=== PATIENT | female | born 1975 ===

== ENCOUNTER 2016-03-30 23:51 | Emergency (ER) | payer MEDICAID ==
[~2016-03-30] VITALS: Ht 166.4 cm; Wt 136.4 kg
[~2016-03-30 23:51] MED LIST: CLON0.2T11 PO; ONDA4TAB9 PO
[2016-03-31 00:03] VITALS: BP 136/89; PULSE 91; RESP 16; O2SAT 99
[2016-03-31 01:39] VITALS: BP 134/79; PULSE 85; RESP 16; O2SAT 99
--- NOTE | 2016-03-31 02:27 | ED.REPORT ---
HPI-Extremity Problem Lower Date of Service Mar 31, 2016 ED Provider: Malcolm Rene DO Patient is a 40 year old female who presents to the ED with increased swelling and pain of her right knee, after sustaining any injury to her knee in January of last year. Patient was awaiting an MRI of her knee to evaluate the injury further, but she was unable to wait any longer. Patient denies a fever, chest pain, or shortness of breath. Nursing Notes Stated Complaint: RIGHT KNEE INJURY Chief Complaint: Extremity Trauma Nursing Notes Reviewed: Yes Allergies: Coded Allergies: ciprofloxacin (Verified Allergy, Severe, vomiting , hives, 03/31/16) codeine (Verified Adverse Reaction, Intermediate, NAUSEA, 03/31/16) ibuprofen (Verified Adverse Reaction, Unknown, vomitting, 03/31/16) Scheduled Clonidine (Catapres) 0.2 Mg Tablet 0.2 MG PO TID Scheduled PRN Ondansetron ODT (Zofran ODT) 4 Mg Tablet 4 MG PO Q4H PRN PRN For Nausea General Time Seen by MD: 02:26 Chief Complaint Knee injury right Hx Obtained From: Patient Arrived By: Walk-in Onset Occurred: More than a week ago... (increasing since January) Symptom Duration: Since onset Location: : Knee right Quality: Painful Severity: Current: Moderate Severity: Maximum: Severe Recent Healthcare: No recent hospitalization, Recent doctor visit Similar Sx Previous: Yes Past Medical History Past Medical History Morbid obesity Reports: Asthma, Hypertension Past Surgical History Reports: Cholecystectomy Smoking History Current Every Day Smoker Social History Drug Use: IV drugs Other Social History: Good social support, Local resident Ambulatory Status Independent Review of Systems Constitutional: Denies: Chills, Fever Musculoskeletal: Reports: Extremity pain, Extremity swelling Complete sys rev & neg: except as marked. Respiratory: Denies: Shortness of breath Cardiovascular: Denies: Chest pain Physical Exam Initial Vital Signs Vital Signs (First) Date Time Temp Pulse Resp B/P Pulse Ox O2 Delivery O2 Flow Rate FiO2 03/31/16 00:03 37.3 91 16 136/89 99 Room Air Initial VS: Reviewed Head / Eyes: Atraumatic, Normocephalic, PERRL ENT: Conjunctiva normal, No scleral icterus Neck: Supple, Full range of motion Respiratory: Breath sounds normal, Clear to auscultation, No respiratory distress Cardiovascular: Regular rate & rhythm, Heart sounds normal, Intact distal pulses Upper Extremities: Vascular intact, Neuro intact, No swelling Skin: Warm, Dry, No cyanosis Neurologic: Alert, Oriented, Nonfocal Psychiatric: Mood/affect normal, Behavior normal, Normal thought content Right Knee: Positive: Swelling present... (mid patellar swelling), Tenderness present... Right Leg / Calf: Positive: Tenderness present... (to compression) Interpretation & Diagnostics Interpretation & Diagnostics: Preliminary US report: Negative for DVT. X-Ray Interpretation Xray Interpretation: Impression: Arthritic changes. No acute process. X-Ray Ordered: Knee right Interpretation / Wet Read by: Wet read Resident Re-Eval/Medical Decision Med Decision/Clinical Course She does have a small effusion hour nothing that we can tap. She has some calf tenderness with some varicosities. DVT was ruled out. Fractures ruled out. She does have some degenerative changes. I still think she sprained her knee or tore something when she twisted and fell on it. We will place her in a knee immobilizer. Short course of opiates for pain. Orthopedic follow-up. Source of Hx: Old records Re-Evaluation/Progress : Time of Eval: 03:20 Patient Status: Condition improved Re-Evaluation/Progress Note: Informed the patient that her ultrasound and knee x-ray were negative. She should follow-up with orthopedic surgery. Patient understands and agrees with the plan to be discharged home. Discharge instructions and follow-up discussed. All questions were addressed. Return to the ED warnings given. Counseled Regarding: Diagnosis, Lab results, Need for follow-up, When/why to return to ED Discharge & Departure Impression: Primary Impression: Right knee pain Chronicity: acute Qualified Code: M25.561 - Pain in right knee Additional Impression: Post-traumatic arthritis of right lower leg Disposition: Home Discharge Condition All VS Reviewed: Yes Condition: Stable Patient Instructions: Knee Sprain (ED) Additional Instructions: Your x-ray and ultrasound of your knee were normal. You likely have post- traumatic arthritis. Take 1-2 Percocet every 4-6 hours as needed for pain. Do not drink alcohol, drive, or take acetaminophen while on this medication. Call the on-call orthopedic surgeon for a follow-up appointment. Also follow-up with your doctor in the next week. Return to the Emergency department if you develop any new or concerning symptoms. Referrals: David Stern MD Attestation Portions of this note were transcribed by Dorcas Anna. I, Dr. Rene personally performed the history, physical exam and medical decision-making; I reviewed and confirmed the accuracy of the information in the transcribed note. Signed by: Raj Brooks, 03/31/2016 0321 copies to: David Stern MD, Todd P DO Mar 31, 2016 02:27 Dorcas Anna Mar 31, 2016 02:50
[2016-03-31] MEDS ORDERED: oxyCODONE-Acetamin 5-325 mg Tablet PO ONE (02:35)
[2016-03-31] MEDS ORDERED: _oxyCODONE/APAP 5-325 mg Tablet PO PRN (02:35)
[2016-03-31 03:49] VITALS: BP 120/75; PULSE 87; RESP 18; O2SAT 98
--- NOTE | 2016-03-31 08:35 | DRSVH ---
PROCEDURE: US VEINOUS LEG DUPLEX UNILATERAL, RIGHT INDICATIONS: right leg pain and calf swelling, TECHNIQUE: Real-time imaging, as well as color and pulse Doppler interrogation, were performed of the lower extr emity deep veins from the inguinal ligament to the popliteal fossa. COMPARISON: None. FINDINGS: The deep veins are normally compressible, and free of intraluminal thrombus. Color and pu lse Doppler demonstrate normal phasic intraluminal flow. There is normal augmentation response to di stal compression maneuver. IMPRESSION: No deep vein thrombosis of the right lower extremity. Dictated by: Ester Smith M.D. on 03/31/2016 at 8:34 Approved by: Ester Smith M.D. on 03/31/2016 at 8:34
--- NOTE | 2016-03-31 08:35 | DRSVH ---
PROCEDURE: X-RAY RIGHT KNEE, THREE VIEWS ([id number]) INDICATIONS: fall, knee pain TECHNIQUE: 3 views of the knee were acquired. COMPARISON: [facility], CR, XR KNEE 3VW RT, 01/22/2016, 21:31. FINDINGS: Bones: No fractures or dislocations. There is moderate medial compartment joint space narrowing and tricompartmental osteophytosis. Soft tissues: No joint effusion. No suspicious soft tissue calcifications. IMPRESSION: Degenerative change. No acute radiographic findings. If pain persists, followup imaging i n 5-7 days is recommended to exclude occult fracture. Dictated by: Ester Smith M.D. on 03/31/2016 at 8:33 Approved by: Ester Smith M.D. on 03/31/2016 at 8:33
== END 2016-03-31 03:28 | disposition home or self-care (01) ==
LOC: SED 23:51
DX: M25.561 Pain in right knee (principal); M17.31 Unilateral post-traumatic osteoarthritis, right knee; I10 Essential (primary) hypertension; J45.909 Unspecified asthma, uncomplicated; F17.200 Nicotine dependence, unspecified, uncomplicated; Z88.1 Allergy status to other antibiotic agents; Z88.5 Allergy status to narcotic agent; Z88.6 Allergy status to analgesic agent

== ENCOUNTER 2016-08-30 08:59 | Emergency (ER) | payer MEDICAID, OTHER ==
[~2016-08-30] VITALS: Ht 167.6 cm; Wt 159.1 kg
[2016-08-30 09:11] VITALS: BP 124/68; PULSE 93; RESP 16; O2SAT 99
--- NOTE | 2016-08-30 09:20 | ED.REPORT ---
HPI-Overdose/Alcohol Toxicity Date of Service Aug 30, 2016 ED Provider: Uli Bhagat MD 40 y/o female with a hx of HTN and chronic right knee pain presents to the ED via EMS due to a fall after alcohol intoxication just prior to arrival. As per the EMS, the pt complained of right knee pain after she fell into a ditch. The pt had been drinking with her at the time who was unable to help the her out of the ditch. In the ED, the pt denies knee pain. Initially, she states "they say I was in an accident" when asked why she is here but when reminded, she agrees she fell into the ditch. The pt was reportedly sober for 2 months but relapsed yesterday. She can't recall how much she drank. She has experienced withdrawal symptoms before. Nursing Notes Stated Complaint: RIGHT KNEE PAIN Chief Complaint: Substance Abuse Nursing Notes Reviewed: Yes Allergies: Coded Allergies: ciprofloxacin (Verified Allergy, Severe, vomiting , hives, 03/31/16) codeine (Verified Adverse Reaction, Intermediate, NAUSEA, 03/31/16) ibuprofen (Verified Adverse Reaction, Unknown, vomitting, 03/31/16) Scheduled Clonidine (Catapres) 0.2 Mg Tablet 0.2 MG PO TID Scheduled PRN Ondansetron ODT (Zofran ODT) 4 Mg Tablet 4 MG PO Q4H PRN PRN For Nausea General Time Seen by Provider: 09:40 Chief Complaint Intoxicated, alcohol Hx Obtained From: Patient, EMS Arrived By: Ambulance Onset Occurred: Just prior to arrival Symptom Duration: Since onset Severity: Current: No pain currently Severity: Maximum: No pain Recent Healthcare: No recent doctor visit Similar Sx Previous: No Past Medical History Past Medical History Morbid obesity Reports: Asthma, Hypertension Past Surgical History Reports: Cholecystectomy Smoking History Current Every Day Smoker Social History Drug Use: IV drugs Other Social History: Good social support, Local resident Ambulatory Status Independent Review of Systems Unable to Obtain ROS Intoxicated Musculoskeletal: Reports: Joint pain (right knee as per EMS) Complete sys rev & neg: except as marked. Physical Exam Initial Vital Signs Vital Signs (First) Date Time Temp Pulse Resp B/P Pulse Ox O2 Delivery O2 Flow Rate FiO2 08/30/16 09:11 36.5 93 16 124/68 99 Room Air Initial VS: Reviewed Head / Eyes: Atraumatic, Normocephalic Neck: Supple, Non-tender, Full range of motion Extremities: Vascular intact, Neuro intact, No tenderness Skin: Warm, Dry, No cyanosis General/Constitutional: Alert, Cooperative Alertness: Positive: Sleeping but arousable Appearance / Presentation: Positive: Intoxicated Respiratory / Chest: Atraumatic, Breath sounds NL, Breath sounds = bilat, No respiratory distress, No rales, No rhonchi, No wheezing Cardiovascular: Heart rate NL, Regular rhythm, Heart sounds NL, No gallop, No murmurs, No rubs Abdomen: Atraumatic, Soft, Non-tender, No guarding, No rebound Neurologic: Speech NL, No motor deficits, No sensory deficits Psychiatric: Affect NL, Mood NL Lower Extremity / Pelvis / MS: Atraumatic, No deformity, Neurologic intact, Vascular intact Chronic right knee pain Re-Eval/Medical Decision Med Decision/Clinical Course 40-year-old female long history of alcohol abuse presenting after being found in the ditch intoxicated today. Reports drinking a lot of alcohol last night. She reports she was sober for 2 months started drinking yesterday. Blood alcohol level was 260 on arrival. Patient was given time to sober up. She was then clinically sober. Her came and said she is at her baseline. She is ambulatory without any difficulty. She was discharged home in the care of her at their request. No sign symptoms withdrawal. Source of Hx: Old records Re-Evaluation/Progress : Time of Eval: 11:14 Patient Status: Condition improved Re-Evaluation/Progress Note: Discussed diagnosis and plan to discharge. Pt understands and agrees with the plan. F/U instructions and RTER warning given. All questions addressed. Counseled Regarding: Diagnosis, Need for follow-up, When/why to return to ED Discharge & Departure Impression: Primary Impression: Alcohol intoxication Disposition: Home Discharge Condition All VS Reviewed: Yes Condition: Stable Patient Instructions: Abuse of Alcohol (ED) Additional Instructions: Thank you for entrusting us with your care today. Follow up with your Primary Care Provider for further evaluation. Return to the Emergency Department in case of alcohol withdrawal symptoms or any new or concerning symptoms. Referrals: [facility] Res[facility] Scribe Attestation Portions of this note were transcribed by Kael Gonzalez. I, , personally performed the history, physical exam and medical decision- making;I reviewed and confirmed the accuracy of the information in the transcribed note. Signed by Raj Dupree. 08/30/16 11:12 copies to: [facility] Uli Bhagat MD Aug 30, 2016 09:20 Kael Gonzalez Aug 30, 2016 09:43
[2016-08-30] MEDS ORDERED: 0.9% Sodium Chloride 1,000 ML IV ONE (09:40)
[2016-08-30 11:31] VITALS: BP 124/54; PULSE 96; RESP 14; O2SAT 99
[2016-08-30 11:33] VITALS: BP 124/54; PULSE 96; RESP 14; O2SAT 99
== END 2016-08-30 11:35 | disposition home or self-care (01) ==
LOC: EDBD 08:59 → SED 08:59
DX: F10.120 Alcohol abuse with intoxication, uncomplicated (principal); M25.561 Pain in right knee; W17.81XA Fall down embankment (hill), initial encounter; Y93.01 Activity, walking, marching and hiking; Y99.8 Other external cause status; Y92.89 Other specified places as the place of occurrence of the external cause; F17.210 Nicotine dependence, cigarettes, uncomplicated; Z59.0 Homelessness; Z90.49 Acquired absence of other specified parts of digestive tract; Z88.6 Allergy status to analgesic agent; Z88.5 Allergy status to narcotic agent; Z88.1 Allergy status to other antibiotic agents

== ENCOUNTER 2016-09-29 23:22 | Emergency (ER) | payer MEDICAID, OTHER ==
[~2016-09-29] VITALS: Ht 165.1 cm; Wt 150.0 kg
[2016-09-29 23:25] VITALS: BP 109/80; PULSE 98; RESP 19; O2SAT 100
[2016-09-30 00:59] LABS: BASOPHILS % (AUTO) 0.1 % (0-3); EOSINOPHILS % (AUTO) 0.1 % (0-5); MONOCYTES % (AUTO) 11.4 % (4-12); Mean Corpuscular Hemoglobin 26.8 pg (27.0-35.0); Mean Corpuscular Volume 84.6 fL (81-100); NEUTROPHILS % (AUTO) 66.7 % (40-74); Platelet Count 120 bil/L (150-400)
[2016-09-30 01:22] LABS: Magnesium 1.8 mg/dL (1.6-2.6)
--- NOTE | 2016-09-30 03:22 | ED.REPORT ---
HPI-NVD Date of Service Sep 30, 2016 ED Provider: Vikram Lopez MD Pt is a 41 year old female with a hx of IV Heroin and alcohol abuse, HTN and asthma presenting to the ED complaining of vomiting and diarrhea onset 2 days ago. Associated symptoms include abdominal pain and a subjective fever. Denies any bloody stool, or any other symptoms at this time. She also complains of right knee pain onset after she fell while going up the stairs a few days ago. She states that she was supposed to see Dr. Stern from [facility] to have surgery on her right knee but missed her appointment. Nursing Notes Stated Complaint: VOMITING/ R KNEE PAIN Chief Complaint: Female Abdominal Pain Nursing Notes Reviewed: Yes Allergies: Coded Allergies: ciprofloxacin (Verified Allergy, Severe, vomiting , hives, 09/29/16) codeine (Verified Adverse Reaction, Intermediate, NAUSEA, 09/29/16) ibuprofen (Verified Adverse Reaction, Unknown, vomitting, 09/29/16) Scheduled Clonidine (Catapres) 0.2 Mg Tablet 0.2 MG PO TID Scheduled PRN Ondansetron ODT (Zofran ODT) 4 Mg Tablet 4 MG PO Q4H PRN PRN For Nausea General Time Seen by MD: 03:09 Chief Complaint Vomiting Hx Obtained From: Patient Arrived By: Walk-in Onset Occurred: 2 days ago Symptom Duration: Since onset Location: : Diffuse Quality: Painful Severity: Current: Moderate Severity: Maximum: Severe Associated with: Reports: Abdominal pain, Fever, Denies: Blood in stool Recent Healthcare: No recent doctor visit, No recent hospitalization Similar Sx Previous: No Past Medical History Past Medical History Morbid obesity IV drug use Alcohol abuse Reports: Asthma, Hypertension Past Surgical History Reports: Cholecystectomy Smoking History Current Every Day Smoker Social History Drug Use: IV drugs Other Social History: Good social support, Local resident Ambulatory Status Independent Review of Systems Constitutional: Reports: Fever, Denies: Weakness - generalized GI: Reports: Abdominal pain, Diarrhea, Nausea, Vomiting, Denies: Bloody/tarry stool Complete sys rev & neg: except as marked. Respiratory: Denies: Shortness of breath Cardiovascular: Denies: Chest pain Physical Exam Initial Vital Signs Vital Signs (First) Date Time Temp Pulse Resp B/P Pulse Ox O2 Delivery O2 Flow Rate FiO2 09/29/16 23:25 36.7 98 19 109/80 100 Room Air Initial VS: Reviewed Interpretation & Diagnostics Lab Results Interpretation Result Diagram: 09/30/16 0037 09/30/16 0037 Test 09/30/16 00:37 White Blood Count 6.9th/mm3 (3.8-10.1) Red Blood Count 3.84mil/mm3 (3.90-5.20) Hemoglobin 10.3g/dL (12.0-15.6) Hematocrit 32.5% (35.0-46.0) Mean Corpuscular Volume 84.6fL (81-100) Mean Corpuscular Hemoglobin 26.8pg (27.0-35.0) Mean Corpuscular Hemoglobin Concent 31.7% (32.0-37.0) Red Cell Distribution Width 20.0% (12.3-15.4) Platelet Count 120bil/L (150-400) Neutrophils (%) (Auto) 66.7% (40-74) Lymphocytes (%) (Auto) 21.3% (14-46) Monocytes (%) (Auto) 11.4% (4-12) Eosinophils (%) (Auto) 0.1% (0-5) Basophils (%) (Auto) 0.1% (0-3) Sodium Level 135mEq/L (134-144) Potassium Level 3.6mEq/L (3.5-5.2) Chloride Level 92mEq/L (97-108) Carbon Dioxide Level 26mmol/L (18-29) Blood Urea Nitrogen 15mg/dL (6-24) Creatinine 1.30mg/dL (0.57-1.00) Estimat Glomerular Filtration Rate 64mL/min (>59) Glucose Level 107mg/dL (60-99) Calcium Level 8.5mg/dL (8.5-10.1) Magnesium Level 1.8mg/dL (1.6-2.6) Total Bilirubin 0.8mg/dL (0.0-1.2) Aspartate Amino Transf (AST/SGOT) 39U/L (0-50) Alanine Aminotransferase (ALT/SGPT) 20U/L (0-32) Alkaline Phosphatase 152U/L (25-150) Total Protein 8.1g/dL (6.4-8.4) Albumin 3.7g/dL (3.4-5.0) Lipase 27U/L (13-60) Hold Valerio Top Tube Received (Received) X-Ray Interpretation Xray Interpretation: Arthritis. No acute findings. X-Ray Ordered: Knee right Interpretation / Wet Read by: Wet read ED physician Re-Eval/Medical Decision Counseled Regarding: Diagnosis, Lab results, Need for follow-up, When/why to return to ED Discharge & Departure Impression: Primary Impression: Nausea vomiting and diarrhea Additional Impression: Osteoarthritis of right knee Osteoarthritis type: unspecified Qualified Code: M17.11 - Unilateral primary osteoarthritis, right knee Disposition: Home Discharge Condition All VS Reviewed: Yes Condition: Improved Patient Instructions: Gastroenteritis (ED) Additional Instructions: Drink plenty of fluids. Ondansetron 4-8 mg 3 times daily as needed for nausea and vomiting, #10 prescribed. Imodium 2 mg, one pill after each loose bowel movement up to 8 pills per day, to be purchased [id number]. Drink plenty of fluids. There is significant arthritis of the right knee, but no acute bony abnormality or dislocation. Referrals: [facility] Res[facility] Scribe Attestation Portions of this note were transcribed by Oren Geller. I, Dr. Lopez personally performed the history, physical exam and medical decision-making; I reviewed and confirmed the accuracy of the information in the transcribed note. Signed by: Raj Tello, 09/30/2016 at [Time]. copies to: [facility] Vikram Lopez MD Sep 30, 2016 03:21 OREN GELLER Sep 30, 2016 03:28
[2016-09-30] MEDS ORDERED: oxyCODONE-Acetamin 10-325 mg Tablet PO ONE (03:30)
[2016-09-30] MEDS ORDERED: Ondansetron 8 mg ODT Tablet PO ONE (03:30)
[2016-09-30 05:02] LABS: APPEARANCE,URINE CLOUDY (CLEAR,HAZY); COLOR,URINE AMBER (YELLOW); OCCULT BLOOD,URINE SMALL (NEGATIVE); UROBILINOGEN,URINE 2 mg/dL (NORMAL)
[2016-09-30 05:04] LABS: ICTOTEST,URINE POSITIVE (Negative)
[2016-09-30 05:22] VITALS: BP 118/82; PULSE 95; RESP 16; O2SAT 99
--- NOTE | 2016-09-30 11:40 | DRSVH ---
PROCEDURE: X-RAY RIGHT KNEE, THREE VIEWS ([id number]) INDICATIONS: Fall/knee pain TECHNIQUE: 3 views of the knee were acquired. COMPARISON: [facility], CR, XR KNEE 3VW RT, 03/31/2016, 2:43. FINDINGS: Bones: No fractures or dislocations. No suspicious bony lesions. There is moderate to severe trico mpartmental knee joint degeneration. Suspect multiple intra-articular bodies. Soft tissues: Small joint effusion. No suspicious soft tissue calcifications. IMPRESSION: 1. No fracture. 2. Degenerative joint disease and possible intra-articular bodies. 3. Small knee joint effusion. Dictated by: Anali Coto M.D. on 09/30/2016 at 11:36 Approved by: Anali Coto M.D. on 09/30/2016 at 11:38
== END 2016-09-30 05:25 | disposition home or self-care (01) ==
LOC: SED 23:22
DX: R11.2 Nausea with vomiting, unspecified (principal); R19.7 Diarrhea, unspecified; M17.11 Unilateral primary osteoarthritis, right knee; F17.200 Nicotine dependence, unspecified, uncomplicated; Z88.1 Allergy status to other antibiotic agents; Z88.5 Allergy status to narcotic agent; Z88.6 Allergy status to analgesic agent